=== PATIENT | male | born 1935 | race Caucasian/White ===

== ENCOUNTER 2018-06-01 20:24 | Emergency (ER) | payer MEDICARE, BC ==
--- NOTE | 2018-06-01 20:35 | ED ---
HPI Febrile Illness - HPI Summary HPI Summary: This is scribe Ed Erica documenting for attending Dr. Johnie Terrell. I, Dr. Terrell, personally performed the services described in this documentation as scribed in my presence and it is both accurate and complete. - History of Current Complaint Chief Complaint: EDFever Time Seen by Provider: 06/01/18 20:34 Pain Intensity: 5 - Allergy/Home Medications Allergies/Adverse Reactions: Allergies Allergy/AdvReac Type Severity Reaction Status Date / Time No Known Allergies Allergy Verified 05/13/15 13:59 PMH/Surg Hx/FS Hx/Imm Hx Previously Healthy: No Cardiovascular History: Reports: Hx Hypertension Respiratory History: Reports: Hx Asthma, Hx Sleep Apnea - ? SCHEDULED FOR SLEEP APNEA TEST Musculoskeletal History: Reports: Hx Bursitis - RECENT BURSITIS RIGHT HIP AND LEG Sensory History: Reports: Hx Cataracts - BILATERAL, Hx Contacts or Glasses - GLASSES, Hx Glaucoma, Hx Hearing Aid - BILATERAL Opthamlomology History: Reports: Hx Cataracts - BILATERAL, Hx Contacts or Glasses - GLASSES, Hx Glaucoma - Surgical History Surgery Procedure, Year, and Place: 89 YRS OF AGE- UNDESCENDED TESTICLE- [facility] Hx Anesthesia Reactions: No Infectious Disease History: No Infectious Disease History: Denies: Traveled Outside the [place] in Last 30 Days - Family History Known Family History: Positive: Unknown - Social History Alcohol Use: None Hx Substance Use: No Substance Use Type: Reports: None Hx Tobacco Use: No Smoking Status (MU): Never Smoked Tobacco Have You Smoked in the Last Year: No Review of Systems Constitutional: Negative Eyes: Negative ENT: Negative Cardiovascular: Negative Respiratory: Negative Gastrointestinal: Negative Genitourinary: Negative Musculoskeletal: Negative Skin: Negative Neurological: Negative Psychological: Normal All Other Systems Reviewed And Are Negative: Yes Physical Exam - Summary Physical Exam Summary: Appearance: The patient is well-nourished in no acute distress and in no acute pain. Skin: The skin is warm and dry and skin color reflects adequate perfusion. HEENT: The head is normocephalic and atraumatic. The pupils are equal and reactive. The conjunctivae are clear and without drainage. Nares are patent and without drainage. Mouth reveals moist mucous membranes and the throat is without erythema and exudate. The external ears are intact. The ear canals are patent and without drainage. The tympanic membranes are intact. Neck: The neck is supple with full range of motion and non-tender. There are no carotid bruits. There is no neck vein distension. Respiratory: Chest is non-tender. Lungs are clear to auscultation and breath sounds are symmetrical and equal. Cardiovascular: Heart is regular rate and rhythm. There is no murmur or rub auscultated. There is no peripheral edema and pulses are symmetrical and equal. Abdomen: The abdomen is soft and non-tender. There are normal bowel sounds heard in all four quadrants and there is no organomegaly palpated. Musculoskeletal: There is no back tenderness noted. Extremities are non-tender with full range of motion. There is good capillary refill. There is no peripheral edema or calf tenderness elicited. Neurological: Patient is alert and oriented to person, place and time. The patient has symmetrical motor strength in all four extremities. Cranial nerves are grossly intact. Deep tendon reflexes are symmetrical and equal in all four extremities. Psychiatric: The patient has an appropriate affect and does not exhibit any anxiety or depression. Triage Information Reviewed: Yes Vital Signs On Initial Exam: Initial Vitals Temp Pulse Resp BP Pulse Ox 100.0 F 60 15 176/94 97 06/01/18 20:29 06/01/18 20:29 06/01/18 20:29 06/01/18 20:29 06/01/18 20:29 Vital Signs Reviewed: Yes Diagnostics - Vital Signs Vital Signs Temp Pulse Resp BP Pulse Ox 06/01/18 20:29 100.0 F 60 15 176/94 97 - Laboratory Lab Statement: Any lab studies that have been ordered have been reviewed, and results considered in the medical decision making process. Discharge - Discharge Plan Referrals: Dereck Elaine MD [Primary Care Provider] -
[2018-06-01] MEDS ORDERED: NS 0.9% 1000 ML* 1,000 ML IV ONE (20:42)
[2018-06-01] MEDS ORDERED: ceFAZolin 1 GM in Dextrose (*) 1 GM/50 ML BAG IVPB ONE (20:43)
--- NOTE | 2018-06-01 20:43 | ED ---
Lower Extremity - HPI Summary HPI Summary: This is scribe Ed Erica documenting for attending Johnie Terrell MD. 82 y/o male presents to the ED c/o red rash at bilateral feet with pain, started in the L foot two days ago. Pain with ambulation. Pt seen at [place] today, sent to ED. Started abx today. Associated sx: fever (101.4 measured at home) and chills. I, Dr. Terrell, personally performed the services described in this documentation as scribed in my presence and it is both accurate and complete. - History of Current Complaint Chief Complaint: EDFever Stated Complaint: POSS CELLULITIS Time Seen by Provider: 06/01/18 20:34 Hx Obtained From: Patient Mechanism Of Injury: Other - rash at bilateral feet Onset of Pain: Days Onset/Duration: Still Present Pain Intensity: 5 Pain Scale Used: 0-10 Numeric Timing: Constant Location: Is Discrete @ - bilateral feet Associated Signs And Symptoms: Positive: Other - red rash at bilateral feet - Allergies/Home Medications Allergies/Adverse Reactions: Allergies Allergy/AdvReac Type Severity Reaction Status Date / Time No Known Allergies Allergy Verified 05/13/15 13:59 PMH/Surg Hx/FS Hx/Imm Hx Previously Healthy: No Cardiovascular History: Reports: Hx Hypertension Respiratory History: Reports: Hx Asthma, Hx Sleep Apnea - ? SCHEDULED FOR SLEEP APNEA TEST Musculoskeletal History: Reports: Hx Bursitis - RECENT BURSITIS RIGHT HIP AND LEG Sensory History: Reports: Hx Cataracts - BILATERAL, Hx Contacts or Glasses - GLASSES, Hx Glaucoma Opthamlomology History: Reports: Hx Cataracts - BILATERAL, Hx Contacts or Glasses - GLASSES, Hx Glaucoma - Surgical History Surgery Procedure, Year, and Place: 305 YRS OF AGE- UNDESCENDED TESTICLE- [facility] Hx Anesthesia Reactions: No Infectious Disease History: No Infectious Disease History: Denies: Traveled Outside the [place] in Last 30 Days - Family History Known Family History: Positive: Unknown - Social History Alcohol Use: None Hx Substance Use: No Substance Use Type: Reports: None Hx Tobacco Use: No Smoking Status (MU): Never Smoked Tobacco Have You Smoked in the Last Year: No Review of Systems Positive: Fever, Chills Eyes: Negative ENT: Negative Cardiovascular: Negative Respiratory: Negative Gastrointestinal: Negative Genitourinary: Negative Musculoskeletal: Negative Positive: Rash - bilateral feet, with pain Neurological: Negative Psychological: Normal All Other Systems Reviewed And Are Negative: Yes Physical Exam - Summary Physical Exam Summary: Appearance: The patient is well-nourished in no acute distress and in no acute pain. Skin: There are erythematous and cellulitic areas at bilateral feet, especially at the base of the toes and at the arches of the feet. There is macular, blanching erythematous areas on the dorsum of the feet. HEENT: The head is normocephalic and atraumatic. The pupils are equal and reactive. The conjunctivae are clear and without drainage. Nares are patent and without drainage. Mouth reveals moist mucous membranes and the throat is without erythema and exudate. The external ears are intact. The ear canals are patent and without drainage. The tympanic membranes are intact. Neck: The neck is supple with full range of motion and non-tender. There are no carotid bruits. There is no neck vein distension. Respiratory: Chest is non-tender. Lungs are clear to auscultation and breath sounds are symmetrical and equal. Cardiovascular: Heart is regular rate and rhythm. There is no murmur or rub auscultated. There is no peripheral edema and pulses are symmetrical and equal. Abdomen: The abdomen is soft and non-tender. There are normal bowel sounds heard in all four quadrants and there is no organomegaly palpated. Musculoskeletal: There is no back tenderness noted. Extremities are non-tender with full range of motion. There is good capillary refill. There is no peripheral edema or calf tenderness elicited. Neurological: Patient is alert and oriented to person, place and time. The patient has symmetrical motor strength in all four extremities. Cranial nerves are grossly intact. Deep tendon reflexes are symmetrical and equal in all four extremities. Psychiatric: The patient has an appropriate affect and does not exhibit any anxiety or depression. Triage Information Reviewed: Yes Vital Signs On Initial Exam: Initial Vitals Temp Pulse Resp BP Pulse Ox 100.0 F 60 15 176/94 97 06/01/18 20:29 06/01/18 20:29 06/01/18 20:29 06/01/18 20:29 06/01/18 20:29 Vital Signs Reviewed: Yes Diagnostics - Vital Signs Vital Signs Temp Pulse Resp BP Pulse Ox 06/01/18 20:29 100.0 F 60 15 176/94 97 - Laboratory Result Diagrams: 06/01/18 21:15 06/01/18 21:15 Lab Statement: Any lab studies that have been ordered have been reviewed, and results considered in the medical decision making process. Lower Extremity Course/Dx - Course Course Of Treatment: Mr. Medley has had 1 dose of Keflex for diagnosis of cellulitis made this afternoon and now has spiked a fever. He was nontoxic in appearance on arrival with stable vital signs and no fever. He had no leukocytosis or other lab or abnormality. He got 1 dose of Kefzol IV here in the department and will be continued on the Keflex at home. - Diagnoses Provider Diagnoses: Cellulitis Discharge - Sign-Out/Discharge Documenting (check all that apply): Patient Departure - Discharge Plan Condition: Stable Disposition: HOME Patient Education Materials: Cellulitis (ED) Referrals: Dereck Elaine MD [Primary Care Provider] - 4 Days (PLEASE F/U IN 3-5 DAYS) Additional Instructions: RETURN TO THE ED FOR WORSENING SYMPTOMS - Billing Disposition and Condition Condition: STABLE Disposition: Home
[2018-06-01 21:25] LABS: ABS Basophils 0.1 10^3/ul (0-0.2); ABS Eosinophils 0.2 10^3/ul (0-0.6); ABS Lymphocytes 1.3 10^3/ul (1.0-4.8); ABS Neutrophils 5.6 10^3/ul (1.5-7.7); ABS Nucleated RBC 0 10^3/ul; Eosinophil % 2.7 % (0-6); Hematocrit 43 % (42-52); Hemoglobin 14.7 g/dl (14.0-18.0); Lymphocyte % 15.7 % (25-47); Mean Corpuscular HGB Conc 34 g/dl (31-36); Mean Corpuscular Hemoglobin 30 pg (27-31); Mean Corpuscular Volume 88 fL (80-94); Nucleated Red Blood Cells % 0.1; Platelet Count 118 10^3/ul (150-450); Red Blood Count 4.94 10^6/ul (4.00-5.40); Red Cell Distribution Width 14 % (10.5-15); White Blood Count 8.1 10^3/ul (3.5-10.8)
[2018-06-01 21:30] LABS: INR 1.08 (0.77-1.02)
[2018-06-01 22:13] VITALS: BP 170/74
== END 2018-06-01 22:11 | disposition home or self-care (01) ==
LOC: ED 20:24
DX: L03.116 Cellulitis of left lower limb (principal); I10 Essential (primary) hypertension
CPT/HCPCS: 36415; 80053; 83605; 85025; 85610; 87040; 96361; 96374; 99282; J0690